=== PATIENT | male | born 1990 | race Two or more races ===

== ENCOUNTER 2024-01-01 08:46 | Emergency (ER) | payer OTHER ==
[~2024-01-01] VITALS: Ht 177.8 cm; Wt 92.5 kg
[2024-01-01] MEDS: NEOMYCIN-BACITRACIN-POLYM UNITDOSE PKG TOP OINT TOP ONE (10:30)
[2024-01-01 11:00] VITALS: BP 118/69; PULSE 84; RESP 12; TEMP 98.1; O2SAT 97
[2024-01-01] MEDS ORDERED: CEPH500C PO (11:24)
== END 2024-01-01 11:30 | disposition home or self-care (01) ==
LOC: ER 08:46
DX: S81.811A Laceration without foreign body, right lower leg, initial encounter (principal); W20.8XXA Other cause of strike by thrown, projected or falling object, initial encounter; Y93.89 Activity, other specified; Y92.89 Other specified places as the place of occurrence of the external cause; Y99.0 Civilian activity done for income or pay
CPT/HCPCS: 12001; 73590

== ENCOUNTER 2024-03-21 08:42 | Emergency (ER) | payer OTHER ==
[~2024-03-21] VITALS: Ht 177.8 cm; Wt 95.9 kg
[~2024-03-21 08:42] MED LIST: CEPH500C PO
[2024-03-21] MEDS ORDERED: CEPH500C PO (10:06)
[2024-03-21] MEDS ORDERED: IBUP-1456 PO (10:06)
[2024-03-21] MEDS: IBUPROFEN 800 MG TAB PO ONE (10:12)
[2024-03-21 10:14] VITALS: BP 122/78; PULSE 71; RESP 18; TEMP 98.2; O2SAT 98
== END 2024-03-21 10:26 | disposition home or self-care (01) ==
LOC: ER 08:42
DX: S83.92XA Sprain of unspecified site of left knee, initial encounter (principal); S80.01XA Contusion of right knee, initial encounter; W18.09XA Striking against other object with subsequent fall, initial encounter; Y93.89 Activity, other specified; Y92.89 Other specified places as the place of occurrence of the external cause; Y99.8 Other external cause status
CPT/HCPCS: 73562